=== PATIENT | female | born 2000 | race Caucasian/White ===

== ENCOUNTER 2022-07-31 22:27 | Emergency (ER) | payer OTHER ==
[~2022-07-31] VITALS: Ht 162.6 cm; Wt 81.2 kg
[2022-07-31 22:37] VITALS: BP 119/59
--- NOTE | 2022-07-31 23:14 | NUR ---
Patient taken to bed 7.
--- NOTE | 2022-07-31 23:42 | NUR ---
X-Ray at bedside.
[2022-08-01] MEDS ORDERED: IBUP-2213 PO (00:08)
[2022-08-01] MEDS ORDERED: LID5T TP (00:08)
[2022-08-01] MEDS ORDERED: KETOROLAC 60 MG/2 ML VIAL IM ONE (00:10)
--- NOTE | 2022-08-01 00:31 | NUR ---
PAIN MEDS GIVEN ASORDERED
--- NOTE | 2022-08-01 00:48 | NUR ---
Patient discharged with v/s stable. Written and verbal after care instructions given and explained. Patient alert, oriented and verbalized understanding of instructions. Ambulatory with steady gait. All questions addressed prior to discharge. ID band removed. Patient advised to follow up with PMD. Rx of LIDODERM given. Patient educated on indication of medication including possible reaction and side effects. Opportunity to ask questions provided and answered.
== END 2022-08-01 00:48 | disposition home or self-care (01) ==
LOC: MED 22:27
DX: S29.9XXA Unspecified injury of thorax, initial encounter (principal); Z79.899 Other long term (current) drug therapy; Z79.1 Long term (current) use of non-steroidal anti-inflammatories (NSAID); Z88.6 Allergy status to analgesic agent; Y08.89XA Assault by other specified means, initial encounter; Y93.89 Activity, other specified; Y92.89 Other specified places as the place of occurrence of the external cause; Y99.8 Other external cause status
CPT/HCPCS: 71045; 96372; 99283; J1885